=== PATIENT | male | born 1980 | race Caucasian/White ===

== ENCOUNTER 2020-11-22 12:57 | Day surgery (SDC) | payer BC ==
[2020-11-16 10:14] LABS: BASOPHILS % (AUTO) 0.8 % (0-1); EOSINOPHILS # (AUTO) 0.1 X10'3 (0-0.9); EOSINOPHILS % (AUTO) 1.2 % (0-6); LYMPHOCYTES # (AUTO) 1.6 X10'3 (1.1-4.8); LYMPHOCYTES % (AUTO) 29.1 % (21-51); MEAN CORPUSCULAR HEMOGLOBIN 32.8 PG (27.0-31.0); MEAN CORPUSCULAR HGB CONC 34.3 g/dL (33.0-36.5); MEAN CORPUSCULAR VOLUME 95.5 FL (78-98); MEAN PLATELET VOLUME 8.8 FL (7.4-10.4); MONOCYTES # (AUTO) 0.7 X10'3 (0-0.9); MONOCYTES % (AUTO) 11.8 % (2-12); NEUTROPHILS # (AUTO) 3.2 X10'3 (1.8-7.7); NEUTROPHILS % (AUTO) 57.1 % (42-75); PRE OP HEMATOCRIT 46.8 % (42.0-52.0); PRE OP HEMOGLOBIN 16.1 g/dL (14.0-17.9); PRE OP PLATELET COUNT 260 X10'3 (140-440); RED CELL DISTRIBUTION WIDTH 12.9 % (11.5-14.5)
[2020-11-16 10:30] LABS: ALBUMIN 3.9 G/DL (3.4-5.0); ALBUMIN/GLOBULIN RATIO 1.1 (1.1-1.5); ALKALINE PHOSPHATASE 49 IU/L (46-116); BLOOD UREA NITROGEN 16 MG/DL (7-18); BUN/CREATININE RATIO 17.4 (5.4-32.0); CALCIUM 8.9 MG/DL (8.5-10.1); CHLORIDE 105 MMOL/L (99-107); CREATININE 0.92 MG/DL (0.60-1.10); PRE OP ALT 25 U/L (30-65); PRE OP ANION GAP 8 (8-16); PRE OP AST 19 U/L (10-37); PRE OP BILIRUB, TOTAL 0.3 MG/DL (0.0-1.0); PRE OP GLUCOSE 102 MG/DL (70-104); PRE OP SODIUM 142 MMOL/L (135-145); TOTAL CARBON DIOXIDE 29.3 MMOL/L (24-32); TOTAL PROTEIN 7.4 G/DL (6.4-8.2); eGFR > 90 ML/MIN
[2020-11-16 10:31] LABS: PRE OP POTASSIUM 4.2 MMOL/L (3.4-5.1)
[2020-11-22] VITALS (9 sets, daily range): BP systolic 146–184; BP diastolic 89–118
[~2020-11-22] VITALS: Ht 170.2 cm; Wt 72.0 kg
[~2020-11-22 12:57] MED LIST: NO HOME MEDS; cefazolin/dext.iso 2gm/100ml 100 ML IV ONE; famotidine 20mg tablet PO ONE; ringers solution, lacted 1,000 ML IV SCH
[2020-11-22] MEDS ORDERED: LIDOcaine 1% 30ml preserv. free vial ONE (14:23)
[2020-11-22] MEDS ORDERED: BUPIVAcaine/PF 2.5 mg/ml (0.25%) 30ml vial ONE (14:24)
[2020-11-22] MEDS ORDERED: sevoflurane 250ml liquid IH ONE (14:36)
[2020-11-22] MEDS ORDERED: midazolam 1 mg/ML 2ml injection ONE (14:36)
[2020-11-22] MEDS ORDERED: LIDOcaine 2% 5ml jelly ONE (14:39)
[2020-11-22] MEDS ORDERED: fentaNYL /PF 50mcg/ml 5ml ampule ONE (14:39)
[2020-11-22] MEDS ORDERED: propofol inj 20 ML IV ONE (14:56)
[2020-11-22] MEDS ORDERED: LIDOcaine 2% (20mg/ml) 5ml vial ONE (14:56)
[2020-11-22] MEDS ORDERED: dexamethasone sod phosphate 4mg/ml inj. ONE (14:57)
[2020-11-22] MEDS ORDERED: rocuronium 10mg/ml inj IV ONE (14:57)
[2020-11-22] MEDS ORDERED: ondansetron/PF 4mg/2ml inj ONE (14:57)
[2020-11-22] MEDS ORDERED: ondansetron/PF 4mg/2ml inj IV PRN (15:15)
[2020-11-22] MEDS ORDERED: hydrALAZINE 20mg/ml inj. IV PRN (15:15)
[2020-11-22] MEDS ORDERED: acetaminophen 1,000mg/100ml IV 100 ML IV PRN (15:15)
[2020-11-22] MEDS ORDERED: proCHLORperazine 10 MG/2 ml inj IV PRN (15:15)
[2020-11-22] MEDS ORDERED: morphine 4 MG/ML inj SYRINge IV PRN (15:15)
[2020-11-22] MEDS ORDERED: meperidine/PF 25mg/ml syringe IV PRN ×3 (15:15)
[2020-11-22] MEDS ORDERED: labetalol 20mg/4ml (5mg/ml) syringe IV PRN (15:15)
[2020-11-22] MEDS ORDERED: ringers solution, lacted 1,000 ML IV SCH (15:15)
[2020-11-22] MEDS ORDERED: morphine 2 MG/ML inj. syringe IV PRN (15:15)
[2020-11-22] MEDS ORDERED: neostigmine methylsulfate 1 MG/ML 10ml vial ONE ×2 (16:07→16:38)
[2020-11-22] MEDS ORDERED: glycopyrrolate 0.2mg/ml inj ONE ×2 (16:07→16:38)
[2020-11-22] MEDS ORDERED: HYDROcodone/acetaminophen 5mg/325mg tablet PO PRN (16:50)
[2020-11-22] MEDS ORDERED: HYDROcodone/acetaminophen 10/325mg tab PO PRN (16:50)
--- NOTE | 2020-11-22 18:08 | NUR ---
PT UP AND ABLE TO AMBULATE SAFELY, PT STATES IS COMFORTABLE, PAIN MINIMAL, VOIDED. D/C INSTRUCTIONS GIVEN AND GONE OVER W/PT WHO VERBALIZED UNDERSTANDING. PT D/CD TO HOME VIA W/C TO PRIVATE VEHICLE W/O INCIDENT. Addendum: 11/22/20 at 1826 by Hillary Mclain RN Amended: Links added.
== END 2020-11-22 18:08 | disposition home or self-care (01) ==
LOC: PAS 12:57
PROVIDERS: ATTEND Surgery
DX: K40.31 Unilateral inguinal hernia, with obstruction, without gangrene, recurrent (principal); K42.9 Umbilical hernia without obstruction or gangrene; Z20.822 Contact with and (suspected) exposure to COVID-19; Z79.899 Other long term (current) drug therapy; R10.9 Unspecified abdominal pain; D17.9 Benign lipomatous neoplasm, unspecified
CPT/HCPCS: 22902; 36415; 49585; 49651; 80053; 82948; 85025; C1781; J0360; J1100; J2001; J2175; J2250; J2405; J2704; J2710; J3010; J3490; U0003; A4215; A4618; J7120